=== PATIENT | male | born 1955 ===

== ENCOUNTER 2024-09-13 07:45 | Inpatient (IN) | payer OTHER ==
[~2024-09-13] VITALS: Ht 167.6 cm; Wt 72.6 kg
[2024-09-13] MEDS ORDERED: COZAAR100 MG PO (08:18)
[2024-09-13] MEDS ORDERED: NORVASC2.5 MG PO (08:18)
[2024-09-13] MEDS ORDERED: HYDRODIURIL12.5 MG PO (08:19)
[2024-09-13] MEDS ORDERED: SYNTHROID75 MCG PO (08:19)
[2024-09-13 08:38] LABS: PH,URINE 5.5 (5.0-8.0); URINE APPEARANCE Clear; URINE BILIRRUBIN Negative (NEGATIVE); URINE BLOOD Negative; URINE COLOR Yellow; URINE GLUCOSE Negative (NEGATIVE); URINE KETONE Negative (NEGATIVE); URINE LEUKOCYTE Negative; URINE NITRATE Negative; URINE PROTEIN 30 (NEGATIVE); URINE UROBILINOGEN 0.2 E.U./dl
[2024-09-13 08:39] LABS: URINE BACTERIA 6.1 uL (0.0-1933); URINE RBC 6.6 uL (0.0-20.8); URINE WBC 5.3 uL (0.0-23.2)
[2024-09-13 08:43] VITALS: BP 149/81
[2024-09-13 08:47] LABS: URINE EPITHELIAL CELLS 0.7 uL (0.0-38.8)
[2024-09-13 08:52] LABS: HEMATOCRIT 46.9 % (39.0-48.0); HEMOGLOBIN 15.8 g/dL (13-16.00); MEAN CELL VOLUME 89.8 fL (80.0-100.00); MEAN CORPUSCULAR HEMOGLOBIN 30.3 pg (27.00-32.0); MEAN CORPUSCULAR HGB CONC 33.7 g/dl (32.0-36.0); PLATELET COUNT 287 K/uL (150-450); RED BLOOD COUNT 5.23 M/uL (4.00-6.00); RED CELL DISTRIBUTION WIDTH 13.1 % (11.5-14.5)
[2024-09-13 09:16] LABS: PARTIAL THROMBOPLASTIN TIME 28.5 SECONDS (22.0-34.0); PROTHROMBIN TIME 10.9 SECONDS (9.0-11.5)
[2024-09-13 09:31] LABS: CREATININE SERUM 1.16 mg/dL (0.70-1.30); GFR 62.43; POTASSIUM 4.89 mEq/L (3.5-5.1)
[2024-09-13 13:31] LABS: RH POSITIVE
[2024-09-19] MEDS ORDERED: CEFAZOLIN SODIUM 1,000 MG VIAL IV ONE (09:00)
[2024-09-19] MEDS ORDERED: ENOXAPARIN SODIUM 40 MG/0.4 ML SYRINGE SUBCUTANEO ONE (09:00)
[2024-09-19] MEDS ORDERED: BUPIVACAINE HCL 30 ML VIAL IJ ONE (09:00)
[2024-09-19] MEDS ORDERED: SURGIFLO APPLICATOR 1 EACH APPL TOP ONE (09:00)
[2024-09-19] MEDS ORDERED: HEMOSTATIC MATRIX 1 KIT KIT TOP ONE (09:00)
[2024-09-19] MEDS ORDERED: OxyCODONE HCL/APAP UD (PERCOCET) PO PRN (13:15)
[2024-09-19] MEDS ORDERED: RINGERS SOLUTION,LACTATED 1,000 ML IV SCH (13:15)
[2024-09-19] MEDS ORDERED: MORPHINE SULFATE 4 MG/ML VIAL IV PRN (13:15)
[2024-09-19] MEDS ORDERED: ONDANSETRON HCL 2 MG/ML VIAL IV PRN (13:15)
[2024-09-19] MEDS ORDERED: SUGAMMADEX SODIUM 200 MG/2 ML VIAL IV ONE (13:30)
[2024-09-19] MEDS ORDERED: MORPHINE SULFATE 4 MG/ML VIAL IV ONE (16:05)
[2024-09-19] MEDS ORDERED: POLYETHYLENE GLYCOL 3350 17 GM BLIST.PACK PO SCH (17:00)
[2024-09-19] MEDS ORDERED: GABAPENTIN 300 MG CAPSULE PO SCH (17:00)
[2024-09-19] MEDS ORDERED: CEFAZOLIN SODIUM 1,000 MG VIAL IV SCH (21:00)
[2024-09-19] MEDS ORDERED: FAMOTIDINE/PF 20 MG/2 ML VIAL IV SCH (21:00)
[2024-09-20 00:27] VITALS: BP 139/68; O2SAT 95
[2024-09-20] MEDS ORDERED: LEVOTHYROXINE SODIUM 75 MCG TABLET PO SCH (06:00)
[2024-09-20 08:39] LABS: HEMATOCRIT 39.9 % (39.0-48.0); HEMOGLOBIN 14.2 g/dL (13-16.00); MEAN CELL VOLUME 87.8 fL (80.0-100.00); MEAN CORPUSCULAR HEMOGLOBIN 31.2 pg (27.00-32.0); MEAN CORPUSCULAR HGB CONC 35.6 g/dl (32.0-36.0); PLATELET COUNT 237 K/uL (150-450); RED BLOOD COUNT 4.54 M/uL (4.00-6.00); RED CELL DISTRIBUTION WIDTH 13.3 % (11.5-14.5)
[2024-09-20] MEDS ORDERED: HYDROCHLOROTHIAZIDE 12.5 MG CAPSULE PO SCH (09:00)
[2024-09-20] MEDS ORDERED: LOSARTAN POTASSIUM 100 MG TABLET PO SCH (09:00)
[2024-09-20] MEDS ORDERED: AMLODIPINE BESYLATE 2.5 MG TABLET PO SCH (09:00)
[2024-09-20] MEDS ORDERED: ENOXAPARIN SODIUM 40 MG/0.4 ML SYRINGE SUBCUTANEO SCH (09:00)
[2024-09-20 09:07] VITALS: BP 139/69; O2SAT 95
[2024-09-20 09:15] LABS: ALBUMIN 3.3 gm/dL (3.4-5.0); CALCIUM 8.8 mg/dL (8.5-10.1); CREATININE SERUM 1.11 mg/dL (0.70-1.30); GFR 65.68; PHOSPHOROUS 3.2 mg/dL (2.5-4.9); POTASSIUM 3.99 mEq/L (3.5-5.1)
== END 2024-09-20 14:27 | disposition home or self-care (01) | DRG 708 ==
LOC: SURH 09-19 05:18 → O/R 09-19 05:18 → SURH 09-19 07:45
PROVIDERS: ADMIT Urology; ATTEND Urology
PROC: 0WQF0ZZ Repair Abdominal Wall, Open Approach (ICD-10-PCS; 2024-09-19)
PROC: 8E0W4CZ Robotic Assisted Procedure of Trunk Region, Percutaneous Endoscopic Approach (ICD-10-PCS; 2024-09-19)
PROC: 0VT04ZZ Resection of Prostate, Percutaneous Endoscopic Approach (ICD-10-PCS; principal; 2024-09-19 13:30)
DX: C61 Malignant neoplasm of prostate (principal); K43.2 Incisional hernia without obstruction or gangrene
CPT/HCPCS: 55866; 49591; S2900

== ENCOUNTER 2024-10-09 07:47 | Outpatient (CLI) | payer OTHER ==
[~2024-10-09 07:47] MED LIST: COZAAR100 MG PO; HYDRODIURIL12.5 MG PO; NORVASC2.5 MG PO; SYNTHROID75 MCG PO
== END 2024-10-09 07:53 | disposition home or self-care (01) ==
LOC: TOM 07:47
PROVIDERS: ATTEND Urology
DX: C61 Malignant neoplasm of prostate (principal)
CPT/HCPCS: 72194; Q9965